=== PATIENT | female | born 1930 | race Caucasian/White ===

== ENCOUNTER 2017-05-18 11:20 | Inpatient (IN) | payer MEDICARE ==
[2017-05-18] MEDS: dilTIAZem IV PUSH 25 MG/5 ML VIAL IVP (11:32)
[2017-05-18 11:41] LABS: TROPONIN BY ISTAT 0.02 ng/ml (<0.08)
[2017-05-18 11:41] LABS: AGAP ISTAT 20 mmol/L (6-14); BUN ISTAT 27 mg/dL (8-26); CHLORIDE ISTAT 98 mmol/L (98-110); CREATININE ISTAT 0.5 mg/dL (0.5-1.4); GLUCOSE ISTAT 171 mg/dL (70-99); HEMATOCRIT ISTAT 41 % (36-40); HEMOGLOBIN ISTAT 13.9 g/dL (12-15); ION CA ISTAT 1.13 mmol/L (1.13-1.32); POTASSIUM ISTAT 4.1 mmol/L (3.5-5.0); SODIUM ISTAT 135 mmol/L (135-145); TOT CO2 ISTAT 23 mmol/L (23-32)
[2017-05-18 11:59] LABS: BASO % 0 % (0-3); EOS % 0 % (0-3); HEMATOCRIT 40.8 % (36.0-47.0); HEMOGLOBIN 13.6 g/dL (12.0-15.5); LYMPH # 2.5 x10^3/uL (1.0-4.8); LYMPH % 15 % (24-48); MEAN CORPUSCULAR HEMOGLOBIN 29 pg (25-35); MEAN CORPUSCULAR HGB CONC 33 g/dL (31-37); MEAN CORPUSCULAR VOLUME 87 fL (79-100); MONO # 0.3 x10^3/uL (0.0-1.1); MONO % 2 % (0-9); NEUT # 13.9 x10^3uL (1.8-7.7); NEUT % 83 % (31-73); PLATELET COUNT 380 x10^3/uL (140-400); WHITE BLOOD COUNT 16.8 x10^3/uL (4.0-11.0)
[2017-05-18 12:05] LABS: ADD MAN DIFF? YES
[2017-05-18] MEDS: PIPERACILLIN/TAZOBACTAM 3.375 GM in IV DEXTROSE 5% 50 ML IV ×3 (12:09→23:31)
[2017-05-18] MEDS: IV NORMAL SALINE 1000ML BAG 1,000 ML IV ×3 (12:09→18:33)
[2017-05-18 12:14] LABS: INFLUENZA A PATIENT NEGATIVE (NEGATIVE); INFLUENZA B PATIENT NEGATIVE (NEGATIVE); OBC FLU VALID
[2017-05-18] MEDS: ONDANSETRON PF 4 MG/2 ML VIAL. IV (12:16)
[2017-05-18] MEDS: methylPREDNISolone SOD SUCC PF 125 MG/2 ML VIAL. IV (12:17)
[2017-05-18] MEDS: VANCOMYCIN 1 GM in IV 1/2 NORMAL SALINE 250 ML IV (12:21)
[2017-05-18] MEDS: ACETAMINOPHEN 650 MG/20.3 ML SOLUTION. PEG (12:23)
[2017-05-18 12:24] LABS: INR 2.7 (0.8-1.1); PROTHROMBIN TIME PATIENT 26.8 SEC (11.7-14.0)
[2017-05-18 12:25] LABS: PARTIAL THROMBOPLASTIN TIME 38 SEC (24-38)
[2017-05-18 12:31] LABS: BILIRUBIN,URINE NEGATIVE (NEG); CLARITY,URINE CLEAR; COLOR,URINE YELLOW; GLUCOSE,URINE NEGATIVE (NEG); NITRITE,URINE NEGATIVE (NEG); PROTEIN,URINE 30 mg/dL (NEG-TRACE); UROBILINOGEN,URINE 0.2 mg/dL (0.2 mg/dL)
[2017-05-18] MEDS: ALBUTEROL SULFATE 2.5 MG/3 ML NEBU. NEB (12:37)
[2017-05-18 12:44] LABS: BACTERIA,URINE MANY /HPF (0-FEW); RBC,URINE >40 /HPF (0-2); WBC,URINE 20-40 /HPF (0-4)
[2017-05-18] MEDS: VANCOMYCIN PER PHARMACY MC ×2 (12:44→15:59)
[2017-05-18 12:49] LABS: BASE EXCESS COOX -3 mmol/L (-3-3); CARBON MONOXIDE 0.3 % (0.0-1.9); HCO3 COOX 21 mmol/L (21-28); METHEMOGLOBIN 0.5 % (0.0-1.9); OXYHEMOGLOBIN 94.2 %; PCO2 COOX 36 mmHg (35-46); PH COOX 7.39 (7.35-7.45); PO2 COOX 79 mmHg (65-108); SAT O2 COOX 95 % (92-99); TOTAL HEMOGLOBIN 14.2 g/dL
[2017-05-18 12:50] LABS: FIO2 COOX 50
[2017-05-18 12:55] LABS: ALBUMIN 3.1 g/dL (3.4-5.0); ALBUMIN/GLOBULIN RATIO 0.7 (1.0-1.7); ALK PHOS 99 U/L (46-116); ALT (SGPT) 27 U/L (14-59); AST (SGOT) 31 U/L (15-37); BLOOD UREA NITROGEN 27 mg/dL (7-20); BUN/CREATININE RATIO 30 (6-20); CALCIUM 8.7 mg/dL (8.5-10.1); CARBON DIOXIDE 22 mmol/L (21-32); CREATININE 0.9 mg/dL (0.6-1.0); GFR 59.4; GLUCOSE 174 mg/dL (70-99); LIPASE 180 U/L (73-393); MAGNESIUM 1.7 mg/dL (1.8-2.4); TOTAL BILIRUBIN 0.8 mg/dL (0.2-1.0); TOTAL PROTEIN 7.5 g/dL (6.4-8.2)
[2017-05-18 12:58] LABS: CHLORIDE 96 mmol/L (98-107); POTASSIUM 4.1 mmol/L (3.5-5.1)
[2017-05-18 13:03] LABS: TROPONINI < 0.017 ng/mL (0.000-0.055)
[2017-05-18 13:04] LABS: NT-PRO BNP 559 pg/mL (0-449)
[2017-05-18 13:09] LABS: LACTIC ACID 6.7 mmol/L (0.4-2.0); THYROID STIM HORMONE (TSH) 1.355 uIU/mL (0.358-3.74)
[2017-05-18 13:10] LABS: ANION GAP 17 (6-14); SODIUM 135 mmol/L (136-145)
[2017-05-18 13:31] LABS: DIG 0.7 ng/mL (0.9-2.0)
[2017-05-18 14:03] LABS: % BANDS 23 % (0-9); % LYMPHS 13 % (24-48); % MONOS 2 % (0-10); % SEGS 62 % (35-66); ANISOCYTOSIS SLIGHT; PLT ESTIMATE ADEQUATE (ADEQUATE)
[2017-05-18 15:55] LABS: LACTIC ACID 5.5 mmol/L (0.4-2.0)
[2017-05-18] MEDS: CLINDAMYCIN 900MG PREMIX 50 ML IV (16:24)
[2017-05-18 17:41] LABS: LACTIC ACID 5.5 mmol/L (0.4-2.0)
[2017-05-18] MEDS: NOREPINEPHRIN PREMIX 250 ML IV (18:34)
[2017-05-18] MEDS: LACTOBACILLUS RHAMNOSUS GG 1 CAPSULE. PO (20:37)
[2017-05-18 22:26] LABS: LACTIC ACID 4.9 mmol/L (0.4-2.0)
[2017-05-19] MEDS: IV NORMAL SALINE 1000ML BAG 1,000 ML IV ×4 (03:08→22:03)
[2017-05-19 05:53] LABS: ADD MAN DIFF? NO
[2017-05-19] MEDS: PIPERACILLIN/TAZOBACTAM 3.375 GM in IV DEXTROSE 5% 50 ML IV ×3 (05:55→17:48)
[2017-05-19 06:02] LABS: BASO % 0 % (0-3); EOS % 0 % (0-3); HEMATOCRIT 30.9 % (36.0-47.0); HEMOGLOBIN 10.2 g/dL (12.0-15.5); LYMPH # 1.3 x10^3/uL (1.0-4.8); LYMPH % 10 % (24-48); MEAN CORPUSCULAR HEMOGLOBIN 29 pg (25-35); MEAN CORPUSCULAR HGB CONC 33 g/dL (31-37); MEAN CORPUSCULAR VOLUME 88 fL (79-100); MONO # 0.4 x10^3/uL (0.0-1.1); MONO % 3 % (0-9); NEUT # 11.4 x10^3uL (1.8-7.7); NEUT % 87 % (31-73); PLATELET COUNT 282 x10^3/uL (140-400); RED BLOOD COUNT 3.52 x10^6/uL (3.50-5.40); RED CELL DISTRIBUTION WIDTH 19.3 % (11.5-14.5); WHITE BLOOD COUNT 13.2 x10^3/uL (4.0-11.0)
[2017-05-19 06:34] LABS: ANION GAP 12 (6-14); BLOOD UREA NITROGEN 22 mg/dL (7-20); CARBON DIOXIDE 24 mmol/L (21-32); CHLORIDE 106 mmol/L (98-107); CREATININE 0.7 mg/dL (0.6-1.0); GFR 79.3; GLUCOSE 124 mg/dL (70-99); POTASSIUM 3.7 mmol/L (3.5-5.1); SODIUM 142 mmol/L (136-145)
[2017-05-19 06:36] LABS: LACTIC ACID 2.5 mmol/L (0.4-2.0)
[2017-05-19] MEDS: LACTOBACILLUS RHAMNOSUS GG 1 CAPSULE. PO (08:44)
[2017-05-19] MEDS: VANCOMYCIN PER PHARMACY MC ×3 (09:45→09:52)
[2017-05-19 10:52] LABS: LACTIC ACID 1.7 mmol/L (0.4-2.0)
[2017-05-19 11:00] LABS: CHOLESTEROL 128 mg/dL (0-200); HDLC 46 mg/dL (40-60); LDLC 71 mg/dL (0-100); NON-HDL CHOLESTEROL 82 mg/dL (0-129); TRIGLYCERIDES 53 mg/dL (0-150); VLDLC 11 mg/dL (0-40)
[2017-05-19 11:03] LABS: CHOLESTEROL/HDL RATIO 2.8
[2017-05-19 12:48] LABS: BASE EXCESS ABG -5 mmol/L (-3-3); HCO3 ABG 20 mmol/L (21-28); PCO2 ABG 38 mmHg (35-46); PH ABG 7.34 (7.35-7.45); PO2 ABG 82 mmHg (65-108); SAT O2 ABG 96 % (92-99)
[2017-05-19 12:50] LABS: FIO2 ABG 50
[2017-05-19 13:14] LABS: MRSA BY PCR Negative (Negative)
[2017-05-19] MEDS: VANCOMYCIN 750 MG in IV 1/2 NORMAL SALINE 250 ML IV (13:55)
[2017-05-19] MEDS: DIGOXIN IV 500 MCG/2 ML AMPUL. IV (15:54)
[2017-05-19] MEDS: WARFARIN 2 MG TABLET. PO (15:55)
[2017-05-19] MEDS: FAMOTIDINE 20 MG/2 ML VIAL IVP (20:48)
[2017-05-20] MEDS: PIPERACILLIN/TAZOBACTAM 3.375 GM in IV DEXTROSE 5% 50 ML IV ×5 (00:52→23:28)
[2017-05-20 05:32] LABS: PROTHROMBIN TIME PATIENT 55.2 SEC (11.7-14.0)
[2017-05-20 05:44] LABS: CREATININE 1.3 mg/dL (0.6-1.0)
[2017-05-20 05:44] LABS: GFR 38.8
[2017-05-20 06:07] LABS: INR 6.8 (0.8-1.1)
[2017-05-20] MEDS: IV NORMAL SALINE 1000ML BAG 1,000 ML IV ×4 (06:55→23:28)
[2017-05-20 12:44] LABS: VANC TR 6.4 mcg/mL (10.0-20.0)
[2017-05-20] MEDS: VANCOMYCIN 750 MG in IV 1/2 NORMAL SALINE 250 ML IV (14:00)
[2017-05-20] MEDS: PHYTONADIONE (VIT K1) IV 10 MG in IV NORMAL SALINE 50ML 50 ML IV (14:02)
[2017-05-20] MEDS: FAMOTIDINE 20 MG/2 ML VIAL IVP (20:39)
[2017-05-21] MEDS: PIPERACILLIN/TAZOBACTAM 3.375 GM in IV DEXTROSE 5% 50 ML IV ×4 (05:32→23:44)
[2017-05-21 05:44] LABS: ADD MAN DIFF? NO
[2017-05-21 06:02] LABS: BASO % 0 % (0-3); EOS % 0 % (0-3); HEMATOCRIT 33.4 % (36.0-47.0); LYMPH # 1.8 x10^3/uL (1.0-4.8); LYMPH % 12 % (24-48); MEAN CORPUSCULAR HEMOGLOBIN 28 pg (25-35); MEAN CORPUSCULAR HGB CONC 33 g/dL (31-37); MEAN CORPUSCULAR VOLUME 86 fL (79-100); MONO # 0.9 x10^3/uL (0.0-1.1); MONO % 6 % (0-9); NEUT % 82 % (31-73); PLATELET COUNT 353 x10^3/uL (140-400); RED BLOOD COUNT 3.89 x10^6/uL (3.50-5.40); RED CELL DISTRIBUTION WIDTH 19.2 % (11.5-14.5); WHITE BLOOD COUNT 14.7 x10^3/uL (4.0-11.0)
[2017-05-21 06:20] LABS: ALBUMIN 2.4 g/dL (3.4-5.0); ALBUMIN/GLOBULIN RATIO 0.6 (1.0-1.7); ALK PHOS 69 U/L (46-116); ALT (SGPT) 23 U/L (14-59); ANION GAP 16 (6-14); AST (SGOT) 23 U/L (15-37); BLOOD UREA NITROGEN 11 mg/dL (7-20); BUN/CREATININE RATIO 22 (6-20); CALCIUM 7.7 mg/dL (8.5-10.1); CARBON DIOXIDE 18 mmol/L (21-32); CHLORIDE 107 mmol/L (98-107); CREATININE 0.5 mg/dL (0.6-1.0); GLUCOSE 75 mg/dL (70-99); SODIUM 141 mmol/L (136-145); TOTAL BILIRUBIN 1.5 mg/dL (0.2-1.0); TOTAL PROTEIN 6.3 g/dL (6.4-8.2)
[2017-05-21 06:24] LABS: POTASSIUM 2.5 mmol/L (3.5-5.1)
[2017-05-21 06:28] LABS: INR 1.5 (0.8-1.1); PROTHROMBIN TIME PATIENT 17.1 SEC (11.7-14.0)
[2017-05-21 07:11] LABS: POC GLUCOSE 78 mg/dL (70-99)
[2017-05-21] MEDS: POTASSIUM CHLORIDE 20 MEQ/15 ML ORAL LIQUID. PEG ×3 (09:18→12:53)
[2017-05-21] MEDS: DIGOXIN IV 500 MCG/2 ML AMPUL. IV (09:20)
[2017-05-21] MEDS ORDERED: POTASSIUM CHLORIDE 20MEQ 50 ML IV (12:00)
[2017-05-21 12:33] LABS: POTASSIUM 2.8 mmol/L (3.5-5.1)
[2017-05-21] MEDS: IV NORMAL SALINE 1000ML BAG 1,000 ML IV ×3 (12:54→23:43)
[2017-05-21] MEDS: ACETAMINOPHEN 650 MG/20.3 ML SOLUTION. PEG (14:57)
[2017-05-21 16:34] LABS: POC GLUCOSE 129 mg/dL (70-99)
[2017-05-21] MEDS: VANCOMYCIN PER PHARMACY MC ×2 (16:58→17:04)
[2017-05-21] MEDS: VANCOMYCIN 750 MG in IV DEXTROSE 5 %-0.2 % NACL 250 ML IV (17:57)
[2017-05-21] MEDS: WARFARIN 1 MG TABLET. PO (18:03)
[2017-05-21 20:35] LABS: POC GLUCOSE 128 mg/dL (70-99)
[2017-05-21] MEDS: FAMOTIDINE 20 MG/2 ML VIAL IVP (21:38)
[2017-05-21] MEDS: MORPHINE SULFATE 2 MG/ML DISP.SYRIN. IV (23:44)
[2017-05-22 05:41] LABS: ADD MAN DIFF? NO
[2017-05-22 05:55] LABS: BASO % 0 % (0-3); EOS % 0 % (0-3); HEMATOCRIT 33.4 % (36.0-47.0); HEMOGLOBIN 11.1 g/dL (12.0-15.5); LYMPH # 2.2 x10^3/uL (1.0-4.8); LYMPH % 13 % (24-48); MEAN CORPUSCULAR HEMOGLOBIN 28 pg (25-35); MEAN CORPUSCULAR HGB CONC 33 g/dL (31-37); MEAN CORPUSCULAR VOLUME 85 fL (79-100); MONO % 6 % (0-9); NEUT # 13.2 x10^3uL (1.8-7.7); NEUT % 80 % (31-73); PLATELET COUNT 391 x10^3/uL (140-400); RED BLOOD COUNT 3.92 x10^6/uL (3.50-5.40); RED CELL DISTRIBUTION WIDTH 19.3 % (11.5-14.5); WHITE BLOOD COUNT 16.5 x10^3/uL (4.0-11.0)
[2017-05-22 05:59] LABS: INR 1.3 (0.8-1.1); PROTHROMBIN TIME PATIENT 15.5 SEC (11.7-14.0)
[2017-05-22] MEDS: PIPERACILLIN/TAZOBACTAM 3.375 GM in IV DEXTROSE 5% 50 ML IV ×4 (06:18→23:53)
[2017-05-22 06:58] LABS: ALBUMIN 2.3 g/dL (3.4-5.0); ALBUMIN/GLOBULIN RATIO 0.6 (1.0-1.7); ALK PHOS 68 U/L (46-116); ALT (SGPT) 20 U/L (14-59); ANION GAP 13 (6-14); AST (SGOT) 24 U/L (15-37); BLOOD UREA NITROGEN 6 mg/dL (7-20); BUN/CREATININE RATIO 15 (6-20); CARBON DIOXIDE 23 mmol/L (21-32); CHLORIDE 108 mmol/L (98-107); CREATININE 0.4 mg/dL (0.6-1.0); GFR 151.3; GLUCOSE 109 mg/dL (70-99); SODIUM 144 mmol/L (136-145); TOTAL BILIRUBIN 1.6 mg/dL (0.2-1.0); TOTAL PROTEIN 6.4 g/dL (6.4-8.2)
[2017-05-22 07:08] LABS: POTASSIUM 2.8 mmol/L (3.5-5.1)
[2017-05-22 07:30] LABS: POC GLUCOSE 116 mg/dL (70-99)
[2017-05-22 09:01] LABS: MAGNESIUM 1.5 mg/dL (1.8-2.4)
[2017-05-22] MEDS: POTASSIUM CHLORIDE 20 MEQ/15 ML ORAL LIQUID. PEG (09:01)
[2017-05-22] MEDS: MORPHINE SULFATE 2 MG/ML DISP.SYRIN. IV (09:01)
[2017-05-22] MEDS: VANCOMYCIN 750 MG in IV DEXTROSE 5 %-0.2 % NACL 250 ML IV ×2 (09:02→16:39)
[2017-05-22] MEDS: METOPROLOL TARTRATE 5 MG/5 ML VIAL. IVP ×2 (11:16→16:38)
[2017-05-22] MEDS: MAGNESIUM SULFATE 2GM 50 ML IV (11:18)
[2017-05-22] MEDS: FUROSEMIDE 40 MG/4 ML VIAL. IVP (11:24)
[2017-05-22] MEDS: VANCOMYCIN PER PHARMACY MC (12:39)
[2017-05-22] MEDS: POTASSIUM CHLORIDE 20 MEQ TABLET.ER. PO (13:09)
[2017-05-22] MEDS: WARFARIN 2 MG TABLET. PO (16:39)
[2017-05-22] MEDS: FUROSEMIDE 20 MG/2 ML VIAL. IVP (22:39)
[2017-05-22] MEDS: FAMOTIDINE 20 MG/2 ML VIAL IVP (22:39)
[2017-05-23] MEDS: METOPROLOL TARTRATE 5 MG/5 ML VIAL. IVP ×2 (00:55→10:03)
[2017-05-23 05:25] LABS: ADD MAN DIFF? NO
[2017-05-23 05:36] LABS: BASO % 0 % (0-3); EOS # 0.1 x10^3/uL (0.0-0.7); EOS % 1 % (0-3); HEMATOCRIT 30.7 % (36.0-47.0); HEMOGLOBIN 10.4 g/dL (12.0-15.5); LYMPH # 2.6 x10^3/uL (1.0-4.8); LYMPH % 15 % (24-48); MEAN CORPUSCULAR HEMOGLOBIN 29 pg (25-35); MEAN CORPUSCULAR HGB CONC 34 g/dL (31-37); MEAN CORPUSCULAR VOLUME 84 fL (79-100); MONO % 6 % (0-9); NEUT # 13.1 x10^3uL (1.8-7.7); NEUT % 78 % (31-73); PLATELET COUNT 442 x10^3/uL (140-400); RED BLOOD COUNT 3.64 x10^6/uL (3.50-5.40); RED CELL DISTRIBUTION WIDTH 19.1 % (11.5-14.5); WHITE BLOOD COUNT 16.7 x10^3/uL (4.0-11.0)
[2017-05-23 05:44] LABS: INR 1.4 (0.8-1.1); PROTHROMBIN TIME PATIENT 16.5 SEC (11.7-14.0)
[2017-05-23 06:03] LABS: ALBUMIN 2.1 g/dL (3.4-5.0); ALBUMIN/GLOBULIN RATIO 0.5 (1.0-1.7); ALK PHOS 70 U/L (46-116); ALT (SGPT) 14 U/L (14-59); ANION GAP 11 (6-14); AST (SGOT) 18 U/L (15-37); BLOOD UREA NITROGEN 7 mg/dL (7-20); BUN/CREATININE RATIO 14 (6-20); CALCIUM 7.5 mg/dL (8.5-10.1); CARBON DIOXIDE 29 mmol/L (21-32); CHLORIDE 103 mmol/L (98-107); CREATININE 0.5 mg/dL (0.6-1.0); GLUCOSE 111 mg/dL (70-99); SODIUM 143 mmol/L (136-145); TOTAL BILIRUBIN 1.2 mg/dL (0.2-1.0); TOTAL PROTEIN 6.2 g/dL (6.4-8.2)
[2017-05-23 06:19] LABS: VANC TR 15.8 mcg/mL (10.0-20.0)
[2017-05-23] MEDS: PIPERACILLIN/TAZOBACTAM 3.375 GM in IV DEXTROSE 5% 50 ML IV (06:20)
[2017-05-23 06:24] LABS: POTASSIUM 2.4 mmol/L (3.5-5.1)
[2017-05-23] MEDS: VANCOMYCIN PER PHARMACY MC ×2 (06:47→13:57)
[2017-05-23] MEDS: VANCOMYCIN 750 MG in IV DEXTROSE 5 %-0.2 % NACL 250 ML IV (09:16)
[2017-05-23] MEDS: POTASSIUM CHLORIDE 20 MEQ/15 ML ORAL LIQUID. PEG (09:18)
[2017-05-23] MEDS: DIGOXIN IV 500 MCG/2 ML AMPUL. IV (09:18)
[2017-05-23] MEDS: MORPHINE SULFATE 2 MG/ML DISP.SYRIN. IV ×2 (09:19→15:02)
[2017-05-23] MEDS ORDERED: POTASSIUM CHLORIDE 20 MEQ/15 ML ORAL LIQUID. PEG (12:00)
[2017-05-23] MEDS ORDERED: WARFARIN 2 MG TABLET. PO (16:00)
== END 2017-05-23 16:19 | disposition hospice, home (50) | DRG 871 ==
LOC: 5 SOUTH 05-20 22:45 → ER 11:20 → 1 WEST ICU 11:44
PROC: 5A09457 Assistance with Respiratory Ventilation, 24-96 Consecutive Hours, Continuous Positive Airway Pressure (ICD-10-PCS; principal; 2017-05-18)
DX: A41.9 Sepsis, unspecified organism (principal); J18.9 Pneumonia, unspecified organism; I60.9 Nontraumatic subarachnoid hemorrhage, unspecified; J96.21 Acute and chronic respiratory failure with hypoxia; R65.21 Severe sepsis with septic shock; G93.1 Anoxic brain damage, not elsewhere classified; I11.0 Hypertensive heart disease with heart failure; D68.9 Coagulation defect, unspecified; I50.9 Heart failure, unspecified; R13.10 Dysphagia, unspecified; N39.0 Urinary tract infection, site not specified; R47.01 Aphasia; I48.2 Chronic atrial fibrillation; K57.90 Diverticulosis of intestine, part unspecified, without perforation or abscess without bleeding; F03.90 Unspecified dementia, unspecified severity, without behavioral disturbance, psychotic disturbance, mood disturbance, and anxiety; B96.1 Klebsiella pneumoniae [K. pneumoniae] as the cause of diseases classified elsewhere; E87.6 Hypokalemia; M19.90 Unspecified osteoarthritis, unspecified site; K21.9 Gastro-esophageal reflux disease without esophagitis; N19 Unspecified kidney failure; R62.7 Adult failure to thrive; Z66 Do not resuscitate; Z79.01 Long term (current) use of anticoagulants; Z86.73 Personal history of transient ischemic attack (TIA), and cerebral infarction without residual deficits; Z93.1 Gastrostomy status
CPT/HCPCS: 36415; 36600; 71045; 80047; 80048; 80053; 80061; 80162; 80202; 81001; 82565; 82805; 82962; 83605; 83690; 83735; 83880; 84132; 84443; 84484; 85007; 85025; 85610; 85730; 86850; 86900; 86901; 87040; 87086; 87186; 87641; 87804; 87804-59; 93005; 93306; 94640; 94660; 96374; 96375; 99291; 99291-25; J1160; J1940; J2060; J2270; J2405; J2543; J2930; J3370; J3430; J3490; J7030; J7060; J7613; S0028